=== PATIENT | male | born 1975 | race Caucasian/White ===

== ENCOUNTER → 2016-11-08 | Outpatient (CLI) | payer BC ==
[2016-11-08 11:14] LABS: BASO % 0.2 %; BASO ABS # 0.03 K/uL (0-0.2); EOS % 1.4 %; IG% 0.3 %; LYMPH % 10.5 %; LYMPH ABS # 1.64 K/uL (1.2-3.4); MEAN CELL VOLUME 82.4 fL (80-100); MEAN PLATELET VOLUME 8.9 fL (7.4-10.4); MONO % 9.2 %; NEUT % 78.4 %; PLATELET COUNT 429 K/uL (130-400); RED BLOOD COUNT 5.22 M/uL (4.7-6.1); WHITE BLOOD COUNT 15.59 K/uL (4.8-10.8)
--- NOTE | 2016-11-08 11:37 | DIAGNOSTIC IMAGING REPORT ---
ABDOMEN 2VIEW W/PA CHEST RTN CLINICAL HISTORY: R10.30 pain. Nausea. COMPARISON STUDY: No previous studies for comparison. FINDINGS: The soft tissues, psoas shadows, renal outlines and intestinal gas pattern appear normal. There is no evidence for bowel obstruction. There is no evidence for free intraperitoneal air. No abnormal abdominal calcifications are seen. A frontal view of the chest was performed and is unremarkable. IMPRESSION: Normal study. Electronically signed by: Timbo Fagan M.D. 11/08/2016 11:36 AM Dictated Date/Time: 11/08/2016 11:35 AM
[2016-11-08 11:38] LABS: COMPLETE YES
== END | disposition home or self-care (01) ==
LOC: C.RAD 10:45
PROVIDERS: ATTEND Nurse Practitioner Family
DX: R10.30 Lower abdominal pain, unspecified (principal); R31.29 Other microscopic hematuria; R11.0 Nausea

== ENCOUNTER → 2016-12-23 | Outpatient (CLI) | payer BC ==
[~2016-12-23] VITALS: Ht 180.3 cm; Wt 164.7 kg
[2016-12-23 14:09] VITALS: BP 135/96; PULSE 112; Ht 180.3 cm; Wt 164.7 kg
== END | disposition home or self-care (01) ==
LOC: C.NEUR 13:27
PROVIDERS: ATTEND Internal Medicine Pulmonary Disease
DX: G47.33 Obstructive sleep apnea (adult) (pediatric) (principal); J34.89 Other specified disorders of nose and nasal sinuses; J34.2 Deviated nasal septum; J30.9 Allergic rhinitis, unspecified